=== PATIENT | male | born 1945 | race Hispanic/Latino ===

== ENCOUNTER 2017-11-25 20:04 | Emergency (ER) | payer OTHER ==
[2017-11-25] MEDS ORDERED: TETANUS/DIPHTHERIA TOXOID [ADULT] 0.5 ML VIAL IM ONE (20:30)
== END 2017-11-25 20:49 | disposition home or self-care (01) ==
LOC: EDH 20:04
DX: S80.872A Other superficial bite, left lower leg, initial encounter (principal); E78.5 Hyperlipidemia, unspecified; Z88.0 Allergy status to penicillin; Z88.6 Allergy status to analgesic agent; Z91.018 Allergy to other foods; W54.0XXA Bitten by dog, initial encounter; Y93.89 Activity, other specified; Y92.89 Other specified places as the place of occurrence of the external cause; Y99.8 Other external cause status
CPT/HCPCS: 90471; 90714

== ENCOUNTER 2020-02-20 12:15 | Emergency (ER) | payer OTHER | END 2020-02-20 12:51 | disposition home or self-care (01) | LOC: EDH 12:15 | DX: S61.012A Laceration without foreign body of left thumb without damage to nail, initial encounter (principal); E78.5 Hyperlipidemia, unspecified; Z88.6 Allergy status to analgesic agent; Z88.0 Allergy status to penicillin; Z90.49 Acquired absence of other specified parts of digestive tract; Z87.891 Personal history of nicotine dependence; X58.XXXA Exposure to other specified factors, initial encounter; Y93.89 Activity, other specified; Y92.098 Other place in other non-institutional residence as the place of occurrence of the external cause; Y99.8 Other external cause status | CPT/HCPCS: 99282 ==

== ENCOUNTER 2021-09-14 08:14 | Emergency (ER) | payer OTHER, MEDICARE ==
[~2021-09-14] VITALS: Ht 188 cm; Wt 94.3 kg
[2021-09-14 10:00] VITALS: BP 126/74
== END 2021-09-14 10:05 | disposition home or self-care (01) ==
LOC: EDH 08:14
DX: U07.1 COVID-19 (principal); Z88.0 Allergy status to penicillin; Z88.6 Allergy status to analgesic agent; Z90.49 Acquired absence of other specified parts of digestive tract
CPT/HCPCS: 87635; 87804 ×2; 87880; 99283; C9803